=== PATIENT | female | born 1960 | race African-American/Black ===

== ENCOUNTER 2019-11-29 14:31 | Observation (INO) ==
[2019-11-29] MEDS ORDERED: ACETAMINOPHEN 500 MG TABLET PO STA (14:51)
[2019-11-29] MEDS ORDERED: ASPIRIN CHEW 81 MG TABLET PO STA (14:51)
[2019-11-29] MEDS ORDERED: ACETAMINOPHEN 325 MG TABLET ONE (15:42)
[2019-11-29 16:31] LABS: Basophils % 0.5 % (0.0-0.8); Eosinophils # 0.2 10*3/uL (0.0-0.87); Eosinophils % 3.3 % (0.00-10.9); Hematocrit 45.4 VOL% (35.7-47.0); Hemoglobin 14.2 GM/DL (12.0-16.0); Immature Granulocytes % 0.2 %; Immature Granulocytes Absolute 0.01 #; Lymphocytes # 1.5 10*3/uL (1.4-4.0); Lymphocytes % 25.7 % (21.3-54.2); Mean Corpuscular HGB Conc 31.3 GM/DL (32-36); Mean Corpuscular Volume 89.2 FL (87-102); Mean Platelet Volume 10.3 FL (9.6-12.0); Neutrophils % 60.3 % (38.7-73.9); Platelet Count 222 T/CUMM (130-400); Red Blood Count 5.09 MC/CUMM (3.8-5.5); Red Cell Distribution Width 14.1 % (9.3-17.3); White Blood Count 5.8 T/CUMM (4-12)
[2019-11-29 16:49] LABS: Albumin 4.1 G/DL (3.4-5.0); Bilirubin,Total 1.5 MG/DL (0.2-1.0); Calcium 9.2 MG/DL (8.5-10.1); Osmolality,Calculated 274.5 MOS/KG (273-304); Total Protein 8.4 G/DL (6.4-8.3)
[2019-11-29] MEDS ORDERED: methylPREDNISolone SOD SUC 125 MG/2 ML VIAL IV STA (18:28)
[2019-11-29] MEDS ORDERED: ALBUTEROL/IPRATROPIUM 3 ML NEB RESP TX STA (18:28)
[2019-11-29] MEDS ORDERED: ONDANSETRON 4 MG/2 ML VIAL IV ONE (18:30)
[2019-11-29] MEDS ORDERED: MORPHINE 4 MG/1 ML VIAL IV STA (18:30)
[2019-11-29 19:29] LABS: Apearance,Urine CLEAR (Clear); Bilirubin,Urine Negative (Negative); Blood, Urine Negative (Negative); Glucose,Urine (UA) Negative (Negative); Ketones,Urine 20 mg/dL (Negative); Nitrite,Urine Negative (Negative); Protein,Urine Negative; RBC,Urine 2 /HPF (0-4); Squamous Epithelial Cell,Urine Occasional /HPF (0-10); Urine Color Yellow (Yellow); Urine Specific Gravity > 1.060 (1.001-1.035); Urine Urobilinogen < 2.0 EU/DL (0.2-1.0); WBC,Urine <1 /HPF (0-6)
[2019-11-29] MEDS ORDERED: GLUCAGON 1 MG VIAL IM PRN (19:50)
[2019-11-29] MEDS ORDERED: DEXTROSE 10% 250 ML BAG IV PRN (19:50)
[2019-11-29] MEDS ORDERED: hydrALAZINE 20 MG/1 ML VIAL IV PRN (19:58)
[2019-11-29] MEDS: ALBUTEROL/IPRATROPIUM 3 ML NEB RESP TX SCH (20:51)
[2019-11-29] MEDS: PANTOPRAZOLE 40 MG VIAL IV SCH (20:54)
[2019-11-29] MEDS: ENOXAPARIN 40 MG/0.4 ML SYRINGE SUBCUT SCH (20:55)
[2019-11-29] MEDS ORDERED: FLUTICASONE 110 MCG/PUFF INHALER 12 GM INH PRN (21:30)
[2019-11-29] MEDS ORDERED: CLINDAMYCIN 300 MG CAPSULE PO SCH (21:30)
[2019-11-29] MEDS: methylPREDNISolone SOD SUC 40 MG/1 ML VIAL IV SCH (22:30)
[2019-11-29] MEDS: cefTRIAXone 1,000 MG in SYRINGE 1 EACH IV SCH (22:35)
[2019-11-29] MEDS: INSULIN LISPRO 100 UNIT/ML SUBCUT SCH (22:47)
[2019-11-29] MEDS: METOCLOPRAMIDE 10 MG TABLET PO SCH (22:48)
[2019-11-29] MEDS: INSULIN GLARGINE 100 UNIT/ML SUBCUT SCH (22:48)
[2019-11-30] MEDS: ALBUTEROL/IPRATROPIUM 3 ML NEB RESP TX SCH ×5 (00:39→20:49)
[2019-11-30 05:08] LABS: Basophils % 0.4 % (0.0-0.8); Hemoglobin 14.1 GM/DL (12.0-16.0); Immature Granulocytes % 0.4 %; Immature Granulocytes Absolute 0.02 #; Lymphocytes % 17.6 % (21.3-54.2); Mean Corpuscular HGB Conc 31.3 GM/DL (32-36); Mean Corpuscular Volume 89.1 FL (87-102); Mean Platelet Volume 11.1 FL (9.6-12.0); Monocytes % 1.8 % (1.7-12.7); Neutrophils % 79.8 % (38.7-73.9); Platelet Count 203 T/CUMM (130-400); Red Blood Count 5.05 MC/CUMM (3.8-5.5); Red Cell Distribution Width 14.3 % (9.3-17.3); White Blood Count 5.6 T/CUMM (4-12)
[2019-11-30 06:04] LABS: Calcium 9.7 MG/DL (8.5-10.1); Osmolality,Calculated 277.8 MOS/KG (273-304)
[2019-11-30] MEDS: methylPREDNISolone SOD SUC 40 MG/1 ML VIAL IV SCH ×3 (06:35→21:30)
[2019-11-30] MEDS: INSULIN LISPRO 100 UNIT/ML SUBCUT SCH ×4 (08:36→21:36)
[2019-11-30] MEDS: METOCLOPRAMIDE 10 MG TABLET PO SCH ×4 (13:30→21:18)
[2019-11-30] MEDS: FLUTICASONE 50 MCG NASAL SPRAY 16 GM BOTTLE BOTH NARES SCH (13:30)
[2019-11-30] MEDS: ASPIRIN CHEW 81 MG TABLET PO SCH (13:31)
[2019-11-30] MEDS: PANTOPRAZOLE 40 MG VIAL IV SCH (21:21)
[2019-11-30] MEDS: cefTRIAXone 1,000 MG in SYRINGE 1 EACH IV SCH (21:27)
[2019-11-30] MEDS: CIPROFLOXACIN/DEXAMETHASONE OTIC SUSP 7.5 ML BOTTLE LEFT EAR SCH (21:34)
[2019-11-30] MEDS: ENOXAPARIN 40 MG/0.4 ML SYRINGE SUBCUT SCH (21:34)
[2019-11-30] MEDS: INSULIN GLARGINE 100 UNIT/ML SUBCUT SCH (21:35)
[2019-12-01] MEDS: ALBUTEROL/IPRATROPIUM 3 ML NEB RESP TX SCH ×5 (00:20→12:40)
[2019-12-01] MEDS: methylPREDNISolone SOD SUC 40 MG/1 ML VIAL IV SCH (05:56)
[2019-12-01] MEDS: INSULIN LISPRO 100 UNIT/ML SUBCUT SCH ×2 (08:28→13:30)
[2019-12-01] MEDS: ASPIRIN CHEW 81 MG TABLET PO SCH (08:28)
[2019-12-01] MEDS: METOCLOPRAMIDE 10 MG TABLET PO SCH (08:28)
[2019-12-01] MEDS: CIPROFLOXACIN/DEXAMETHASONE OTIC SUSP 7.5 ML BOTTLE LEFT EAR SCH (08:29)
[2019-12-01 11:55] VITALS: BP 165/56
[2019-12-01] MEDS: FLUTICASONE 50 MCG NASAL SPRAY 16 GM BOTTLE BOTH NARES SCH (13:02)
== END 2019-12-01 14:59 | disposition home or self-care (01) ==
LOC: N.ED 14:31 → N.EDINP 14:31 → N.TELES 20:29 → N.2W 11-30 09:54
PROVIDERS: ADMIT Emergency Medicine; ATTEND Emergency Medicine

== ENCOUNTER 2021-05-26 15:30 | Observation (INO) ==
[2021-05-26 17:00] LABS: Basophils % 0.3 % (0.0-0.8); Eosinophils # 0.1 10*3/uL (0.0-0.87); Eosinophils % 1.4 % (0.00-10.9); Hematocrit 43.1 VOL% (35.7-47.0); Hemoglobin 13.1 GM/DL (12.0-16.0); Immature Granulocytes % 1.7 %; Immature Granulocytes Absolute 0.11 #; Lymphocytes # 2.6 10*3/uL (1.4-4.0); Lymphocytes % 40.9 % (21.3-54.2); Mean Corpuscular HGB Conc 30.4 GM/DL (32-36); Mean Corpuscular Volume 89.6 FL (87-102); Monocytes % 15.5 % (1.7-12.7); NRBC # 0.02 10*3/uL; Neutrophils % 40.2 % (38.7-73.9); Platelet Count 392 T/CUMM (130-400); Red Blood Count 4.81 MC/CUMM (3.8-5.5); Red Cell Distribution Width 14.7 % (9.3-17.3); White Blood Count 6.4 T/CUMM (4-12)
[2021-05-26 17:11] LABS: Albumin 3.5 G/DL (3.4-5.0); Bilirubin,Total 1.2 MG/DL (0.20-1.00); Calcium 9.3 MG/DL (8.5-10.1); Osmolality,Calculated 278.5 MOS/KG (273-304); Potassium 3.4 MMOL/L (3.5-5.1)
[2021-05-26 17:25] LABS: PT Patient Result 11.7 SECS (10.5-12.0)
[2021-05-26 17:26] LABS: Eosinophils 2 % (0-10); Lymphocytes 37 % (20-55); Nucleated Red Blood Cells 1 (0-5); Segmented Neutrophils 50 % (50-85); Total Cells Counted 100
[2021-05-26 17:27] LABS: Anisocytosis 1+; Atypical Lymphocytes Few; Platelet Estimate Increased; Poikilocytosis 1+
[2021-05-26 17:28] LABS: Reactive Lymphocytes 2+
[2021-05-26] MEDS ORDERED: ONDANSETRON 4 MG/2 ML VIAL IV ONE (17:40)
[2021-05-26] MEDS ORDERED: ACETAMINOPHEN 325 MG TABLET PO PRN (19:01)
[2021-05-26] MEDS ORDERED: GLUCAGON 1 MG VIAL IM PRN (19:01)
[2021-05-26] MEDS ORDERED: CALCIUM CARBONATE CHEW 500 MG TABLET PO PRN (19:01)
[2021-05-26] MEDS ORDERED: ONDANSETRON 4 MG/2 ML VIAL IV PRN (19:01)
[2021-05-26] MEDS ORDERED: DEXTROSE 50% 25 GM/50 ML VIAL IV PRN (19:01)
[2021-05-26] MEDS: INSULIN REGULAR 100 UNIT/ML SUBCUT SCH (22:13)
[2021-05-26] MEDS: LACTATED RINGERS 1,000 ML IV SCH (22:13)
[2021-05-27] MEDS: LACTATED RINGERS 1,000 ML IV SCH (04:51)
[2021-05-27 05:03] LABS: Basophils % 0.3 % (0.0-0.8); Eosinophils # 0.1 10*3/uL (0.0-0.87); Eosinophils % 1.1 % (0.00-10.9); Hematocrit 40.4 VOL% (35.7-47.0); Hemoglobin 12.4 GM/DL (12.0-16.0); Immature Granulocytes % 1.7 %; Immature Granulocytes Absolute 0.12 #; Lymphocytes # 2.4 10*3/uL (1.4-4.0); Lymphocytes % 33.6 % (21.3-54.2); Mean Corpuscular HGB Conc 30.7 GM/DL (32-36); Mean Corpuscular Volume 90.6 FL (87-102); Mean Platelet Volume 10.3 FL (9.6-12.0); Monocytes % 19.4 % (1.7-12.7); NRBC # 0.03 10*3/uL; Neutrophils % 43.9 % (38.7-73.9); Platelet Count 369 T/CUMM (130-400); Red Blood Count 4.46 MC/CUMM (3.8-5.5); Red Cell Distribution Width 14.7 % (9.3-17.3); White Blood Count 7.2 T/CUMM (4-12)
[2021-05-27 05:31] LABS: Calcium 9.2 MG/DL (8.5-10.1); Osmolality,Calculated 282.1 MOS/KG (273-304); Potassium 3.8 MMOL/L (3.5-5.1)
[2021-05-27 05:49] LABS: Eosinophils 1 % (0-10); Lymphocytes 26 % (20-55); Nucleated Red Blood Cells 1 (0-5); Platelet Estimate Normal; Segmented Neutrophils 51 % (50-85); Total Cells Counted 100
[2021-05-27] MEDS: INSULIN REGULAR 100 UNIT/ML SUBCUT SCH ×4 (08:00→20:47)
[2021-05-27] MEDS: LOSARTAN 50 MG TABLET PO SCH (09:42)
[2021-05-27] MEDS: hydroCHLOROthiazide 25 MG TABLET PO SCH (09:52)
[2021-05-27] MEDS ORDERED: MELATONIN 3 MG TABLET PO PRN (14:45)
[2021-05-27] MEDS ORDERED: ENOXAPARIN 40 MG/0.4 ML SYRINGE SUBCUT SCH (15:00)
[2021-05-27] MEDS: DEXAMETHASONE 4 MG/1 ML VIAL IV SCH (15:25)
[2021-05-27] MEDS: ASCORBIC ACID 500 MG TABLET PO SCH ×2 (16:34→20:46)
[2021-05-27] MEDS: FAMOTIDINE 20 MG TABLET PO SCH ×2 (16:35→20:46)
[2021-05-27] MEDS: ZINC GLUCONATE 50 MG TABLET PO SCH (16:35)
[2021-05-27] MEDS: CHOLECALCIFEROL 1,000 UNIT TABLET PO SCH (16:35)
[2021-05-27] MEDS: CETIRIZINE 10 MG TABLET PO SCH (16:40)
[2021-05-28 04:26] LABS: Basophils % 0.5 % (0.0-0.8); Eosinophils % 0.2 % (0.00-10.9); Hematocrit 40.3 VOL% (35.7-47.0); Hemoglobin 12.3 GM/DL (12.0-16.0); Immature Granulocytes Absolute 0.18 #; Lymphocytes # 1.7 10*3/uL (1.4-4.0); Lymphocytes % 28.9 % (21.3-54.2); Mean Corpuscular HGB Conc 30.5 GM/DL (32-36); Mean Corpuscular Volume 91.4 FL (87-102); Mean Platelet Volume 9.9 FL (9.6-12.0); Monocytes % 10.2 % (1.7-12.7); NRBC # 0.03 10*3/uL; Neutrophils % 57.2 % (38.7-73.9); Platelet Count 385 T/CUMM (130-400); Red Blood Count 4.41 MC/CUMM (3.8-5.5); Red Cell Distribution Width 14.6 % (9.3-17.3); White Blood Count 5.9 T/CUMM (4-12)
[2021-05-28 04:56] LABS: Ferritin 632.1 ng/mL (8-252)
[2021-05-28 05:18] LABS: Calcium 9.9 MG/DL (8.5-10.1); Osmolality,Calculated 276.4 MOS/KG (273-304); Potassium 3.9 MMOL/L (3.5-5.1)
[2021-05-28] MEDS: hydroCHLOROthiazide 25 MG TABLET PO SCH (08:46)
[2021-05-28] MEDS: INSULIN REGULAR 100 UNIT/ML SUBCUT SCH (08:46)
[2021-05-28] MEDS: FAMOTIDINE 20 MG TABLET PO SCH (08:46)
[2021-05-28] MEDS: ZINC GLUCONATE 50 MG TABLET PO SCH (08:47)
[2021-05-28] MEDS: LOSARTAN 50 MG TABLET PO SCH (08:47)
[2021-05-28] MEDS: ASCORBIC ACID 500 MG TABLET PO SCH (08:47)
[2021-05-28] MEDS ORDERED: AZITHROMYCIN 250 MG TABLET PO SCH (09:00)
[2021-05-28] MEDS: CHOLECALCIFEROL 1,000 UNIT TABLET PO SCH (09:08)
[2021-05-28] MEDS: CETIRIZINE 10 MG TABLET PO SCH (09:08)
[2021-05-28] MEDS: DEXAMETHASONE 4 MG/1 ML VIAL IV SCH (11:27)
[2021-05-28 12:05] VITALS: BP 138/81
== END 2021-05-28 14:00 | disposition home or self-care (01) ==
LOC: EDBD → EDUNIT# → N.TELEN 15:30 → N.ED 15:30 → SUATTDRO 19:01 → N.2E 20:25
PROVIDERS: ADMIT Internal Medicine Geriatric Medicine; ATTEND Internal Medicine